=== PATIENT | female | born 1965 | race Caucasian/White ===

== ENCOUNTER → 2016-07-25 | Outpatient (CLI) | payer OTHER ==
[~2016-07-25] VITALS: Ht 154.9 cm; Wt 84.4 kg
[~2016-07-25] MED LIST: ADVAIR HFA120 INHALA IH; AMBIEN10 MG PO; ASPIRIN81 M2 PO; AZITHROMYCIN250 MG1 PO; AZITHROMYCIN500 M1 PO; Ambien PO; Aspirin E.C. PO; B COMPLETE1 EACH PO; BACLOFEN10 MG PO; BACTRIM,SEPT1 TABLET PO; BUPROPION HCL100 MG PO; BUSPAR10 MG PO; BUSPAR15 MG PO; BUSPIRONE HCL30 MG PO; Bactrim,Septra DS 80 PO; Buspar PO; CELEXA20 MG PO; CHANTIX1 MG PO; COMPAZINE10 MG PO; COZAAR25 MG PO; CYMBALTA60 MG PO; DOCUSATE SODIU100 MG PO; FARXIGA10 MG PO; FENOFIBRATE145 M1 PO; FLEXERIL5 MG PO; GABAPENTIN300 MG PO; GEMFIBROZIL600 MG PO; GLUCOPHAGE1000 MG PO; GRALISE600 MG PO; Glucophage PO; HUMALOG100 UNIT/2 SC; HYDROCODON-ACE1 EAC7 PO; Habitrol,Nicoderm CQ TD; IBUPROFEN800 MG PO; IRON325 M1 PO; IRON325 MG PO; ISOSORBIDE MONO30 MG PO; KADIAN30 MG PO; LABETALOL HCL200 MG PO; LECITHIN1200 M1 PO; LEVEMIR FL100 UNIT/1 SC; LEVETIRACETAM500 MG PO; LEVOTHYROXINE25 MCG PO; LIDOCAINE 2% JELLY TP; LO-DOSE ASPIRIN81 M1 PO; LOMOTIL TABLET1 EACH PO; LOSARTAN POTASS25 MG PO; Levothroid,Synthroid PO; Lopid PO; MAGNESIUM400 M1 PO; METFORMIN HCL1000 MG PO; METFORMIN HCL500 MG PO; METHOCARBAMOL750 MG PO; MIRAPEX0.5 MG PO; MORPHINE SULFAT15 M1 PO; MUPIROCIN22 GM TP; Mirapex PO; NEXIUM40 MG PO; NITROSTAT0.4 MG SL; OMEGA III EPA1000 MG PO; OMEPRAZOLE20 MG PO; OXAYDO5 MG PO; PILOCARPINE HCL5 MG PO; PLAVIX75 MG PO; POTASSIUM GLUCO2 MEQ PO; PRAVACHOL40 MG PO; PRAVASTATIN SOD40 MG PO; PREMARIN0.3 MG PO; PREMARIN0.625 MG PO; PREMARIN0.9 MG PO; PRINIVIL5 MG PO; PROBIOTIC1 EAC1 PO; PROCHLORPERAZIN10 MG PO; PROMETHAZINE HC25 M1 PO; Plavix PO; Pravachol PO; PriLOSEC PO; RANEXA500 MG PO; RANITIDINE HCL150 MG PO; REQUIP1 MG PO; ROXICODONE5 MG PO; Requip PO; SENNA-TIME S T1 EACH PO; SINGULAIR10 MG PO; SPIRIVA1 INHALATI IH; SYNTHROID25 MCG PO; Singulair PO; TESSALON200 MG PO; THERAGRAN1 TABLET PO; TRAZODONE HCL50 MG PO; TYLENOL WITH C1 EACH PO; VALACYCLOVIR500 MG PO; VALTREX50 MG/ML PO; VENTOLIN HFA18 GM IH; VITAMIN C1000 MG PO; VITAMIN D-32000 UNI2 PO; VITAMIN D31000 UNIT PO; VITAMIN E200 UNI2 PO; ValTRex PO; WELLBUTRIN SR200 MG PO; ZITHROMAX Z-PA250 MG PO; ZOLOFT100 MG PO; ZOLOFT50 MG PO; Zestril,Prinivil PO; celeXA PO
[2016-07-25 14:47] LABS: POINT-OF-CARE METER ID UU13113694
== END | disposition home or self-care (01) ==
LOC: AMB 14:00
PROVIDERS: Internal Medicine Gastroenterology
DX: K29.00 Acute gastritis without bleeding (principal); Q39.9 Congenital malformation of esophagus, unspecified; K21.9 Gastro-esophageal reflux disease without esophagitis; R13.10 Dysphagia, unspecified; K31.84 Gastroparesis; Z79.82 Long term (current) use of aspirin; Z79.891 Long term (current) use of opiate analgesic; I25.10 Atherosclerotic heart disease of native coronary artery without angina pectoris; Z98.61 Coronary angioplasty status; G47.30 Sleep apnea, unspecified; E11.9 Type 2 diabetes mellitus without complications; E07.9 Disorder of thyroid, unspecified; J44.9 Chronic obstructive pulmonary disease, unspecified; Z88.8 Allergy status to other drugs, medicaments and biological substances; Z91.09 Other allergy status, other than to drugs and biological substances
CPT/HCPCS: 82948; 88305; 88342 TC; J2250

== ENCOUNTER 2017-02-13 21:18 | Emergency (ER) | payer OTHER ==
[~2017-02-13] VITALS: Ht 154.9 cm; Wt 83.4 kg
[2017-02-13 22:33] LABS: HEMATOCRIT 40.4 % (36.0-46.0); MCH 31.2 PG (29.0-34.0); MCHC 33.2 G/DL (30.0-36.0); MEAN PLAT.VOLUME 10.7 uM^3 (9.5-12.4); PLATELET COUNT 262 K/uL (156-360); RBC DIS.WIDTH-SD 41.7 % (39-53); WHITE BLOOD COUNT 7.7 K/uL (4.1-10.2)
[2017-02-13 23:00] LABS: CHLORIDE 106 mEq/L (99-109); POTASSIUM 3.9 mEq/L (3.7-5.4); SODIUM 138 mEq/L (136-147); TROP-I INTERPRETATION NEGATIVE; TROPONIN-I < 0.01 ng/mL (0.0-0.30)
[2017-02-13 23:02] LABS: GLUCOSE 103 mg/dL (70-99)
[2017-02-13 23:03] LABS: ANION GAP 6 MEQ/L (2-14)
[2017-02-13 23:06] LABS: GFR ESTIMATE (CALCULATED) > 59 mL/min/
[2017-02-13 23:07] LABS: UREA NITROGEN (BUN) 32 mg/dL (9-23)
[2017-02-13] MEDS ORDERED: HYCODAN SYRUP480 ML PO (23:42)
[2017-02-13] MEDS ORDERED: AUGMENTIN875 MG PO (23:42)
[2017-02-13] MEDS ORDERED: PREDNISONE10 MG PO (23:42)
[2017-02-13] MEDS ORDERED: ZITHROMAX Z-PA250 MG PO (23:42)
[2017-02-14] VITALS: BP 139/75
== END 2017-02-14 | disposition home or self-care (01) ==
LOC: EME 21:18
DX: J44.0 Chronic obstructive pulmonary disease with (acute) lower respiratory infection (principal); J18.9 Pneumonia, unspecified organism; J45.901 Unspecified asthma with (acute) exacerbation; F17.200 Nicotine dependence, unspecified, uncomplicated; E78.5 Hyperlipidemia, unspecified; E11.9 Type 2 diabetes mellitus without complications; Z98.61 Coronary angioplasty status; Z79.82 Long term (current) use of aspirin; Z79.02 Long term (current) use of antithrombotics/antiplatelets
CPT/HCPCS: 71020; 80048; 84484; 85027; 93005; 99281; 99283

== ENCOUNTER 2017-07-12 13:08 | Day surgery (SDC) | payer OTHER ==
[~2017-07-12] VITALS: Ht 154.9 cm; Wt 85.3 kg
[~2017-07-12 13:08] MED LIST changes: +AMARYL1 MG PO; +AUGMENTIN875 MG PO; +GLUCOSAMINE-CH1 EA37 PO; +HYCODAN SYRUP480 ML PO; +LASIX20 MG PO; +LIDODERM 5% P1 PATCH TD; +LOTRISONE15 GM TP; +MOTRIN800 MG PO; +PHENERGAN DM SYR1 ML PO; +PREDNISONE10 MG PO; +VITAMIN B-6100 MG PO; +[UNRECOGNIZED DRUG - OTHER] PO
[2017-07-12 18:25] VITALS: BP 121/66
[2017-07-12 18:58] VITALS: BP 119/58
== END 2017-07-12 19:10 | disposition home or self-care (01) ==
LOC: SDC 13:08
PROVIDERS: Orthopaedic Surgery Hand Surgery
DX: G56.01 Carpal tunnel syndrome, right upper limb (principal); G56.21 Lesion of ulnar nerve, right upper limb; G47.30 Sleep apnea, unspecified; J44.9 Chronic obstructive pulmonary disease, unspecified; E11.9 Type 2 diabetes mellitus without complications; E03.9 Hypothyroidism, unspecified; F41.8 Other specified anxiety disorders; K21.9 Gastro-esophageal reflux disease without esophagitis; M79.7 Fibromyalgia; Z90.2 Acquired absence of lung [part of]; R00.1 Bradycardia, unspecified; F17.210 Nicotine dependence, cigarettes, uncomplicated; Z79.82 Long term (current) use of aspirin
CPT/HCPCS: 82948; 94640; J0131; J0690; J1100; J2250; J3010; J7042; S0020

== ENCOUNTER 2017-08-10 18:40 | Observation (INO) | payer OTHER ==
[~2017-08-10] VITALS: Ht 154.9 cm; Wt 86.6 kg
[~2017-08-10 18:40] MED LIST changes: +BEVESPI AEROS10.7 GM IH; +FLAGYL500 MG PO; +GLUCOPHAGE XR,500 MG PO; +GLUCOPHAGE XR750 MG PO; -KADIAN30 MG PO; -LIDOCAINE 2% JELLY TP; +MS CONTIN,ORAMO30 MG PO; -POTASSIUM GLUCO2 MEQ PO; +POTASSIUM GLUCO99 M1 PO; +XOLIDO118 ML TP; +ZOFRAN8 MG PO
[2017-08-10 19:22] LABS: HEMATOCRIT 28.3 % (36.0-46.0); HEMOGLOBIN 9.3 G/DL (11.9-15.5); MCHC 32.9 G/DL (30.0-36.0); MCV 97.3 FL (83-99); NRBC (%) 0.3 /100 WBC (0-0); PLATELET COUNT 324 K/uL (156-360); RBC DIS.WIDTH-SD 48.5 % (39-53); RED BLOOD COUNT 2.91 M/uL (3.80-5.20); WHITE BLOOD COUNT 12.3 K/uL (4.1-10.2)
[2017-08-10 19:33] LABS: CHLORIDE 101 mEq/L (99-109); POTASSIUM 4.4 mEq/L (3.7-5.4); SODIUM 139 mEq/L (136-147)
[2017-08-10 19:34] LABS: GLUCOSE 102 mg/dL (70-99)
[2017-08-10 19:38] LABS: CREATININE 0.7 mg/dL (0.6-1.3); GFR ESTIMATE (CALCULATED) > 59 mL/min/
[2017-08-10 20:02] LABS: UREA NITROGEN (BUN) 25 mg/dL (9-23)
[2017-08-10 21:58] LABS: ALBUMIN 4.1 g/dL (3.2-4.8)
[2017-08-10 22:01] LABS: TOTAL PROTEIN 6.6 g/dL (6.4-8.3)
[2017-08-10 22:03] LABS: TOTAL BILIRUBIN 0.2 mg/dL (0.0-1.0)
[2017-08-10 22:04] LABS: ALKALINE PHOSPHATASE 61 IU/L (3-129)
[2017-08-10 22:07] LABS: ALT (GPT) 25 IU/L (3-49); AST (GOT) 24 IU/L (2-34); DIRECT BILIRUBIN 0.1 mg/dL (0.0-0.3)
[2017-08-10 22:08] LABS: LIPASE 52 U/L (1.0-51.0)
[2017-08-10 22:14] LABS: TROP-I INTERPRETATION NEGATIVE; TROPONIN-I < 0.01 ng/mL (0.0-0.30)
[2017-08-10] MEDS ORDERED: PROMETHAZINE HC25 M1 PO (23:01)
[2017-08-10] MEDS ORDERED: VITAMIN B-6100 MG PO (23:03)
[2017-08-11 02:25] LABS: PTT 28.8 SEC (25-37)
[2017-08-11 02:52] VITALS: BP 112/41
== END 2017-08-11 02:58 | disposition left against medical advice (07) ==
LOC: EME 18:40 → EDOF 08-11 01:38 → ENRESERV 08-11 01:47 → CANRESERV 08-11 02:26 → ENRESERV 08-11 02:26 → EDOF 08-11 02:58
PROVIDERS: Emergency Medicine; Hospitalist
DX: K92.1 Melena (principal); R19.7 Diarrhea, unspecified; D62 Acute posthemorrhagic anemia; J44.9 Chronic obstructive pulmonary disease, unspecified; G47.30 Sleep apnea, unspecified; E11.43 Type 2 diabetes mellitus with diabetic autonomic (poly)neuropathy; K31.84 Gastroparesis; M79.7 Fibromyalgia; E03.9 Hypothyroidism, unspecified; I25.10 Atherosclerotic heart disease of native coronary artery without angina pectoris; Z95.5 Presence of coronary angioplasty implant and graft; K76.0 Fatty (change of) liver, not elsewhere classified; D18.03 Hemangioma of intra-abdominal structures; K80.20 Calculus of gallbladder without cholecystitis without obstruction; D72.829 Elevated white blood cell count, unspecified; F17.200 Nicotine dependence, unspecified, uncomplicated; Z79.84 Long term (current) use of oral hypoglycemic drugs; Z79.82 Long term (current) use of aspirin; Z79.02 Long term (current) use of antithrombotics/antiplatelets; Z91.048 Other nonmedicinal substance allergy status
CPT/HCPCS: 74177; 80048; 80076; 83690; 84484; 85014; 85018; 85027; 85610; 85730; 86850; 86900; 86901; 93005; 99281; 99285; C9113; G0378; J2765; J7030

== ENCOUNTER → 2017-08-11 | Outpatient (CLI) | payer OTHER ==
[~2017-08-11] VITALS: Ht 154.9 cm; Wt 85.3 kg
== END | disposition home or self-care (01) ==
LOC: AMB 12:49
PROVIDERS: Internal Medicine Gastroenterology
DX: K55.20 Angiodysplasia of colon without hemorrhage (principal); K57.30 Diverticulosis of large intestine without perforation or abscess without bleeding; K64.8 Other hemorrhoids; K25.9 Gastric ulcer, unspecified as acute or chronic, without hemorrhage or perforation; K21.9 Gastro-esophageal reflux disease without esophagitis; Z79.1 Long term (current) use of non-steroidal anti-inflammatories (NSAID); Z86.010 Personal history of colon polyps; J44.9 Chronic obstructive pulmonary disease, unspecified; K58.9 Irritable bowel syndrome, unspecified
CPT/HCPCS: 82948; 88305; 88342 TC